=== PATIENT | male | born 1970 | race Caucasian/White ===

== ENCOUNTER 2024-08-01 08:40 | Outpatient (CLI) | payer OTHER, SELFPAY | END 2024-08-01 08:41 | disposition home or self-care (01) | LOC: ANHBWCAUD 08:41 | DX: H90.3 Sensorineural hearing loss, bilateral (principal); H93.13 Tinnitus, bilateral; H61.22 Impacted cerumen, left ear | CPT/HCPCS: 92557; 92567 ==